=== PATIENT | male | born 2000 | race Caucasian/White ===

== ENCOUNTER 2020-07-06 14:40 | Emergency (ER) | payer BC ==
--- OUTSIDE RECORDS SUMMARY | 2020-07-06 14:42 | XMS REPORT | Continuity of Care Document ---
:2000 Author Organization [facility] t Address [address] [place] [address] Dr. Dale [address] [place] [id number] Care Team Providers Name Role Phone Unavailable Unavailable Unavailable Problems This patient has no known problems. Allergies, Adverse Reactions, Alerts This patient has no known allergies or adverse reactions. Medications This patient has no known medications. Procedures This patient has no known procedures. Results This patient has no known results.
--- NOTE | 2020-07-06 17:04 | RAD REPORT ---
EXAM DESCRIPTION: RAD - Knee Left 3 View - 07/06/2020 4:13 pm CLINICAL HISTORY: Left knee pain status post injury FINDINGS: No fracture or dislocation is seen. Soft tissue swelling is present
[2020-07-06] MEDS ORDERED: KETOROLAC 30 MG/ML INJ ONE (17:23)
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
[2020-07-06 18:13] VITALS: BP 143/55; TEMP 97.5; O2SAT 100
== END 2020-07-06 18:08 | disposition home or self-care (01) ==
LOC: ER 14:40
DX: M23.92 Unspecified internal derangement of left knee (principal); W03.XXXA Other fall on same level due to collision with another person, initial encounter
CPT/HCPCS: 96372; 99284